=== PATIENT | female | born 1995 | race Caucasian/White ===

== ENCOUNTER 2017-02-14 16:17 | Emergency (ER) | payer OTHER, BC ==
[~2017-02-14] VITALS: Ht 165.1 cm; Wt 115.5 kg
[~2017-02-14 16:17] MED LIST: ALBU18002 INH; ASPI-390 PO; BCPILLS PO; MELA1TAB5 PO
[2017-02-14 16:20] VITALS: TEMP 37.4; Ht 165.1 cm; Wt 115.5 kg
--- NOTE | 2017-02-14 16:57 | DIAGNOSTIC IMAGING REPORT ---
RIGHT ANKLE MIN 3 VIEWS ROUTINE CLINICAL HISTORY: r/o fx right ankle, pain following trauma Right trauma. Pain. COMPARISON: None. DISCUSSION: Possible incomplete cortical fracture of the mid to inferior talus. Medial and lateral malleolus are unremarkable. No evidence of dislocation. There is no evidence for soft tissue swelling. IMPRESSION: Potential incomplete cortical fracture of the mid to inferior talus. CT of the right ankle is suggested for confirmation Electronically signed by: Michael Villanueva M.D. 02/14/2017 4:56 PM Dictated Date/Time: 02/14/2017 4:45 PM
--- NOTE | 2017-02-14 16:59 | DIAGNOSTIC IMAGING REPORT ---
RIGHT FOOT MIN 3 VIEWS ROUTINE CLINICAL HISTORY: R/O fx right foot, pain following trauma Right trauma. Pain. COMPARISON: None. DISCUSSION: The bones and joint spaces appear intact. There is no evidence of fracture, dislocation or bony disease. There is no evidence for soft tissue swelling. IMPRESSION: Negative study. Electronically signed by: Michael Villanueva M.D. 02/14/2017 4:58 PM Dictated Date/Time: 02/14/2017 4:57 PM
[2017-02-14] MEDS ORDERED: ONDANSETRON INJ 2 MG/ML 2 ML VIAL IV STA (17:32)
[2017-02-14] MEDS ORDERED: MoRPHine SULFATE 4 MG/ML 1 ML CARP\\VIAL IV STA (17:32)
[2017-02-14] MEDS ORDERED: DESO1TAB24 PO (17:38)
[2017-02-14] MEDS ORDERED: DOXY100C2 PO (17:38)
[2017-02-14] MEDS ORDERED: EFFSR75 PO (17:38)
[2017-02-14] MEDS ORDERED: FLUT0.15 NAE (17:46)
[2017-02-14] MEDS ORDERED: VNTHFA/IN INH (17:46)
[2017-02-14] MEDS ORDERED: ASPI-390 PO (17:46)
[2017-02-14] MEDS ORDERED: ONDA4TAB46 PO (17:46)
--- NOTE | 2017-02-14 18:39 | DIAGNOSTIC IMAGING REPORT ---
CT OF THE RIGHT ANKLE AND FOOT WITHOUT CONTRAST CLINICAL HISTORY: Right ankle pain following trauma. Possible talar fracture on radiographs. TECHNIQUE: Axial images of the right ankle and foot were obtained without IV contrast. Sagittal and coronal reconstructions were viewed. COMPARISON STUDY: Right ankle and foot radiograph performed earlier today. FINDINGS: An os trigonum is present. The tarsometatarsal joints are intact. No acute fracture is identified on this examination. The finding on prior radiographs was artifactual. There is mild soft tissue swelling of the right ankle and foot. IMPRESSION: No acute fracture or dislocation of the right ankle or foot. The finding on prior radiographs was artifactual was likely due to an os trigonum, an anatomic variant. Electronically signed by: Adelfo Coleman M.D. 02/14/2017 6:37 PM Dictated Date/Time: 02/14/2017 6:30 PM
[2017-02-14 20:05] VITALS: BP 168/106; PULSE 90; O2SAT 98
[2017-02-14] MEDS ORDERED: RIZA10TA18 PO (22:57)
--- NOTE | 2017-02-18 20:44 | EMERGENCY ROOM VISIT NOTE ---
ED Visit Note First contact with patient: 16:54 CHIEF COMPLAINT: Right ankle pain. HISTORY OF PRESENT ILLNESS: Ms. Veronica is a 21-year old female who ambulates into the ED complaining of right ankle pain. She reports approximately 1.5 hours ago she lost her balance and fell down 3-4 steps injuring her right ankle while at work. Since that time she reports that she has had severe pain throughout the ankle. She currently describes her pain as a sharp and throbbing sensation. She rates her discomfort 10/10. Her pain is radiating down the medial ankle and into the foot. She has not identified any alleviating factors related to the pain. Palpation and all ankle movements increase her discomfort. She has not taken her medications for pain prior to arrival at the hospital. Associated with her pain she reports she has a mild tingling sensation through all the toes. She denies hip pain, knee pain, lower leg pain, leg weakness/numbness/tingling. She also denies any previous significant injuries or surgeries to the right ankle or foot. REVIEW OF SYSTEMS: As noted above in History of Present Illness. PAST MEDICAL HISTORY: Bronchitis, pneumonia, migraine headaches and status post tonsillectomy/adenoidectomy. CURRENT MEDICATIONS: Medications Dose Route/Sig Max Daily Dose Days Date Category Zofran (Ondansetron HCl) 4 Mg Tab 4 Mg PO PRN UD PRN 02/14/17 Reported Excedrin Migraine (Ljzqafn-Mqqrzkbitndoi-Qlhbqrgf) 1 Tab Tab 2 Tabs PO PRN UD 02/14/17 Reported Flonase Allergy Relief (Fluticasone Propionate (Nasal)) 50 Mcg/Act Spr 2 Sprays MANNY DAILY PRN 02/14/17 Reported Ventolin Hfa (Albuterol) 200 Puffs/58097 Mcg Aers 2 Puffs INH Q4 02/14/17 Reported Juleber 0.15-30 mg-Mcg (Desogestrel & Ethinyl Estradio) 1 Tab Tab 1 Tab PO DAILY 02/14/17 Reported Effexor Extended Rel (Venlafaxine Hcl) 75 Mg Capcr 75 Mg PO DAILY 02/14/17 Reported Vibramycin (Doxycycline Hyclate) 100 Mg Cap 100 Mg PO BID 02/14/17 Reported Maxalt (Rizatriptan Benzoate) 10 Mg Tab 10 Mg PO UD PRN 8/5/15 Reported ALLERGIES TO MEDICATIONS: Penicillins. SOCIAL HISTORY: Patient is currently employed; she feels safe in her home environment; she denies tobacco and alcohol use. PHYSICAL EXAM: Vital Signs: Date Time Temp Pulse Resp B/P Pulse Ox O2 Delivery O2 Flow Rate FiO2 02/14/17 20:05 90 18 168/106 98 02/14/17 18:28 97 14 130/94 97 Room Air 02/14/17 16:20 37.4 92 16 146/85 97 Room Air General: 21 year old female in mild/moderate distress due to pain, nontoxic- appearing, afebrile and hemodynamically stable. Neurological: Awake, alert, oriented to person place and time. Answering questions appropriately and following commands. Skin: Warm dry and pink. No soft tissue injuries. Right Lower Extremity: No gross dylan deformities. No tenderness in the hip or knee. Tenderness over the medial and lower malleolus and the ligamentous structures anterior and inferior to the malleoli with mild swelling but no bony deformity, bony crepitus or ecchymosis. It was difficult to evaluate ligamentous structures due to patient's pain but I did not perceive any significant laxity throughout the ankle. There was also tenderness over the medial cuneiform tarsal without bony deformity, swelling or ecchymosis. She does have near full range of motion of plantar flexion and dorsi flexion but decreased range of motion in inversion and eversion. She did have full range of motion in flexion and extension of all toes. Throughout the foot the skin is pink and warm with brisk capillary refill. Able to distinguish light sensations through all dermatomes of the foot. ED COURSE: Patient is assessed as noted above. Denied IV lock was initiated and patient received 4 mg of morphine IV and 4 mg of Zofran IV. Right Foot X-Rays: Were read by myself and the radiologist showing no acute fractures or dislocations. Right Ankle X-Rays: Were read by myself and the radiologist showing a possible cortical fracture of the mid to inferior talus. CT was recommended for confirmation. CT Right Ankle/Foot: Was reviewed by myself and read by the radiologist showing no acute fractures or dislocations; previous x-ray findings were artifact. Additionally patient was given ice for pain, swelling and comfort. Patient is placed in a gel splint and is instructed on crutch use. Patient is educated about her condition and instructed on her treatment plan; she verbalizes understanding and agreement with the our plan. CLINICAL IMPRESSION: Right ankle sprain. Status post fall. Work related injury. DISPOSITION: Patient is discharged to home in stable condition prior to departure she was reassessed and subjectively reported she was feeling much better and rated her discomfort 4/10. PLAN: Comfort measures were discussed with the patient. Patient was encouraged to follow-up with Workmen's Compensation in 3-4 days for recheck and return to work instruction and reevaluation. Patient was encouraged return the ED for worsening/uncontrolled pain, uncontrolled swelling, foot/ankle weakness/numbness/tingling or any new/ concerning symptoms.
== END 2017-02-14 20:10 | disposition home or self-care (01) ==
LOC: C.EDB 16:18 → C.EDD 20:10
DX: S93.401A Sprain of unspecified ligament of right ankle, initial encounter (principal); W10.9XXA Fall (on) (from) unspecified stairs and steps, initial encounter; Y99.0 Civilian activity done for income or pay

== ENCOUNTER 2020-04-07 21:17 | Inpatient (IN) ==
--- NOTE | 2020-04-07 22:18 | Obstetrical Progress Note ---
Date of Service April 07, 2020 Subjective 24 yo at 40.2 days SROM @ 1900Hrs 04/07/20 FHR; CAT1 VE; / Sono; VT Ctx ; Irregular Pt does not want any medical augmentation for now. Explained to pt, the purpose of staring augmentation is to prevent infection and its associated consequences Pt and spouse have expressed understanding Results & Data ([facility]) Vital Signs (Past 12 Hours) Vital Signs Temp Pulse Resp BP 04/07/20 21:38 37.0 C 90 18 128/74 04/07/20 21:36 37.0 C 90 18 128/74
[2020-04-07] MEDS ORDERED: OXYTOCIN 30 UNITS/500 ML BAG IV PRN (22:26)
[2020-04-07 22:49] LABS: Hematocrit (blood only) 39.5 % (37-47); Hemoglobin 13.7 g/dL (12.0-16.0); Mean Corpuscular Volume 86.6 fL (80-100); Mean Platelet Volume 11.9 fL (7.4-10.4); Platelet Count 242 K/uL (130-400); RDW Coefficient of Variation 13.7 % (11.5-14.5); Red Blood Count 4.56 M/uL (4.2-5.4); White Blood Count 12.84 K/uL (4.8-10.8)
[2020-04-07 22:52] LABS: Mean Corpuscular Hgb Conc 34.7 g/dL (32-36)
[2020-04-08] MEDS ORDERED: BUTORPHANOL TARTRATE 1 MG/ML VIAL IV PRN (03:30)
[2020-04-08] MEDS ORDERED: BUTORPHANOL TARTRATE 1 MG/ML VIAL ONE (03:37)
[2020-04-08] MEDS: LACTATED RINGER'S 1,000 ML IV PRN ×4 (03:39→21:38)
[2020-04-08] MEDS ORDERED: ePHEDrine sulfate 50 MG/ML AMP ONE (08:03)
[2020-04-08] MEDS ORDERED: BUPIVACAINE 0.25% 30 ML VIAL ONE ×2 (08:03→20:22)
[2020-04-08] MEDS ORDERED: OXYTOCIN 30 UNITS/500 ML BAG IV PRN (08:03)
--- NOTE | 2020-04-08 08:03 | History & Physical Report ---
Date of Service April 08, 2020 Assessment & Plan (1) Spontaneous rupture of amniotic membranes: 24 yo at 40.3 wks with SROM since 1900 yesterday, now with regular ctx and cervical change VSS Afebrile FHR reassuring GBS negative Plan epidural for pain and augment with pitocin if needed Continue to monitor closely History of Present Illness Primary Care Provider: Svitlana Duarte DO Patient is a 24 yo at 40.3 wks admitted last night by Dr Guardado for SROM at 1900 She started to have ctxs around 2300 and got closer and stronger around 3 am this morning'Now she is very painful and desires epidural for pain LOF+ clear, NO VB +FM her has been uncomplicated except class II Obesity GBS negative Denies medical problems, smoking/ alcohol or Drug use, no h/o STD's Allergies Allergy/AdvReac Type Severity Reaction Status Date / Time sulfamethoxazole Allergy Intermediate Rash Verified 04/07/20 22:35 [From Bactrim] trimethoprim [From Bactrim] Allergy Intermediate Rash Verified 04/07/20 22:35 amoxicillin Allergy Mild RASH AN Verified 10/19/19 22:42 cefprozil Allergy Mild Rash Verified 10/19/19 22:42 fluoxetine Allergy Mild Redness of Verified 10/19/19 22:42 Skin Penicillins Allergy Mild RASH AN Verified 10/19/19 22:42 tramadol Allergy Mild Redness of Verified 10/19/19 22:42 Skin Home Medications Home Medications Medication Instructions Recorded Confirmed Type PNV cmb#95-ferrous fumarate-FA 1 tab PO DAILY 10/19/19 04/07/20 History [] Patient History Medical History Bronchitis (Acute) Migraine (Chronic) Surgical History S/P tonsillectomy and adenoidectomy (Chronic) Social History Preferred Language: Danish Communication Ability: Effective Beliefs That Will Affect Care: None marital status: Current Living Situation: Spouse Other Information That Helps Us Care for You: No Feels Safe at Home: Yes Safety Concerns: Feels Safe At This Time Smoking Status: Never smoker Hx Alcohol Use: No Hx Substance Use: No Review of Systems All systems reviewed & are unremarkable except as noted in HPI & below Physical Exam Genitourinary: normal external appearance VE: cervox 43 cm/ 60%/ -1, mid, FSE is applied, FHR 130's Results & Data Vital Signs (Past 12 Hours) Vital Signs Temp Pulse Resp BP 04/08/20 07:13 37.1 C 97 H 20 135/70 04/08/20 06:14 36.7 C 85 18 125/65 04/08/20 03:56 36.6 C 04/08/20 02:00 36.6 C 04/08/20 00:00 36.6 C 04/07/20 21:38 37.0 C 90 18 128/74 04/07/20 21:36 37.0 C 90 18 128/74 Laboratory Results Lab Results 04/07/20 Range/Units 22:41 WBC 12.84 H (4.8-10.8) K/uL RBC 4.56 (4.2-5.4) M/uL Hgb 13.7 (12.0-16.0) g/dL Hct 39.5 (37-47) % MCV 86.6 (80-100) fL MCH 30.0 (25-34) pg MCHC 34.7 (32-36) g/dL RDW Std Deviation 43.0 (36.4-46.3) fL RDW Coeff of Nazia 13.7 (11.5-14.5) % Plt Count 242 (130-400) K/uL MPV 11.9 H (7.4-10.4) fL Monitoring External Monitor 130's, unable to monitor continuously, FS is applied Tocodynamometer Ctxs q 2-3 min
[2020-04-08] MEDS ORDERED: fentaNYL 2MCG/ML ROPIV 1.25MG/ML 100 ML BAG EPI ONE (08:04)
[2020-04-08] MEDS ORDERED: fentaNYL citrate 100 MCG/2 ML VIAL ONE ×2 (08:04→20:21)
[2020-04-08] MEDS ORDERED: NALOXONE HCL 0.4 MG/1 ML VIAL/CARP IV PRN (08:16)
[2020-04-08] MEDS ORDERED: ePHEDrine sulfate 50 MG/ML AMP IV PRN (08:16)
[2020-04-08] MEDS ORDERED: NALOXONE HCL 1 MG in SODIUM CHLORIDE 0.9% 1000ML 1,000 ML IV PRN (08:16)
[2020-04-08] MEDS ORDERED: ONDANSETRON INJ 2 MG/ML 2 ML VIAL IV PRN (08:16)
[2020-04-08] MEDS ORDERED: DiphenhydrAMINE HCL 50 MG/ML VIAL IV PRN (08:16)
--- NOTE | 2020-04-08 08:19 | Anesthesiology Consultation ---
Date of Service April 08, 2020 Assessment & Plan (1) Encounter for pre-operative examination: Chart Review Chart Review: Patient NOT seen in Pre Admission Testing and Acceptable Risk for Labor Epidural Consults Requested none History Height/Weight Height: 5 ft 5 in Weight: 124.284 kg Allergies Allergy/AdvReac Type Severity Reaction Status Date / Time sulfamethoxazole Allergy Intermediate Rash Verified 04/07/20 22:35 [From Bactrim] trimethoprim [From Bactrim] Allergy Intermediate Rash Verified 04/07/20 22:35 amoxicillin Allergy Mild RASH AN Verified 10/19/19 22:42 cefprozil Allergy Mild Rash Verified 10/19/19 22:42 fluoxetine Allergy Mild Redness of Verified 10/19/19 22:42 Skin Penicillins Allergy Mild RASH AN Verified 10/19/19 22:42 tramadol Allergy Mild Redness of Verified 10/19/19 22:42 Skin Medications Home Medications Medication Instructions Recorded Confirmed Last Taken PNV cmb#95-ferrous fumarate-FA 1 tab PO DAILY 10/19/19 04/07/20 04/07/20 [] Active Medications Generic Name Dose Route Start Last Admin Trade Name Freq PRN Reason Stop Dose Admin Lactated Ringer's 1,000 mls @ 125 mls/hr 04/07/20 22:26 04/08/20 07:59 Lr IV 04/09/20 22:25 999 mls/hr .Q8H PRN Infusion L&D Protocol Protocol Past Medical History Medical History Bronchitis (Acute) Migraine (Chronic) Exercise / Class Metabolic Activity II 4-5 Yardwork/Stairs/Walk up hill Past Surgical History Surgical History S/P tonsillectomy and adenoidectomy (Chronic) Past Anesthesia History No Hx of Anesthesia Complications and No Family Hx of Anesthesia Complications History of PONV No Hx of PONV and No Hx of Motion Sickness Social History Smoking Status: Never smoker Do You Dip or Chew Tobacco: No Hx Alcohol Use: No Hx Substance Use: No Physical Exam Vital Signs Last Vital Signs Temp 37.1 C 04/08/20 07:13 Pulse 109 H 04/08/20 08:15 Resp 20 04/08/20 07:13 BP 135/70 04/08/20 07:13 Pulse Ox 96 04/08/20 08:15 Testing Laboratory Results 04/07/20 22:41
--- NOTE | 2020-04-08 13:59 | Obstetrical Progress Note ---
Date of Service April 08, 2020 Assessment & Plan Admission and Anticipated Discharge Date Admission Date: April 07, 2020 Subjective Patient is reevaluated She is comfortable now VSS Afebrile VE: 3/ 80%/ -2 FHR 140's categ I [place] irregular ctxs Plan to start pitocin and AB for prolonged ROM, multiple allergies Results & Data ([facility]) Vital Signs (Past 12 Hours) Vital Signs Temp Pulse Resp BP Pulse Ox 04/08/20 13:55 107 H 99 04/08/20 13:50 109 H 97 04/08/20 13:48 102 H 135/74 04/08/20 13:45 94 H 97 04/08/20 13:40 93 H 97 04/08/20 13:35 96 H 96 04/08/20 13:31 108 H 111/56 L 04/08/20 13:30 91 H 96 04/08/20 13:25 93 H 96 04/08/20 13:20 84 96 04/08/20 13:16 102 H 120/62 04/08/20 13:15 98 H 96 04/08/20 13:10 88 97 04/08/20 13:05 94 H 97 04/08/20 13:02 93 H 116/67 04/08/20 13:00 96 H 20 96 04/08/20 12:55 103 H 98 04/08/20 12:50 92 H 96 04/08/20 12:47 100 H 118/65 04/08/20 12:45 91 H 97 04/08/20 12:40 86 97 04/08/20 12:35 82 97 04/08/20 12:32 85 116/65 04/08/20 12:30 37.1 C 91 H 20 96 04/08/20 12:27 100 H 120/76 04/08/20 12:25 114 H 98 04/08/20 12:20 88 97 04/08/20 12:16 84 96/49 L 04/08/20 12:15 83 96 04/08/20 12:10 81 96 04/08/20 12:05 80 95 04/08/20 12:03 89 96/52 L 04/08/20 12:00 85 18 96 04/08/20 11:55 106 H 97 04/08/20 11:50 86 96 04/08/20 11:47 86 119/57 L 04/08/20 11:45 86 97 04/08/20 11:40 99 H 96 04/08/20 11:35 99 H 97 04/08/20 11:31 84 123/57 L 04/08/20 11:30 85 20 97 04/08/20 11:25 84 97 04/08/20 11:20 85 97 04/08/20 11:17 83 117/56 L 04/08/20 11:15 83 96 04/08/20 11:10 82 96 04/08/20 11:05 83 96 04/08/20 11:02 82 109/56 L 04/08/20 11:00 82 20 95 04/08/20 10:55 95 H 96 04/08/20 10:50 81 96 04/08/20 10:47 88 124/63 04/08/20 10:45 90 97 04/08/20 10:40 99 H 97 04/08/20 10:35 88 95 04/08/20 10:33 86 106/52 L 04/08/20 10:30 37.1 C 86 20 96 04/08/20 10:25 87 96 04/08/20 10:20 90 96 04/08/20 10:17 92 H 104/56 L 04/08/20 10:15 91 H 95 04/08/20 10:10 93 H 95 04/08/20 10:05 89 96 04/08/20 10:04 92 H 111/52 L 04/08/20 10:00 93 H 20 95 04/08/20 09:55 101 H 96 04/08/20 09:50 98 H 97 04/08/20 09:47 108 H 114/67 04/08/20 09:45 97 H 97 04/08/20 09:40 107 H 98 04/08/20 09:35 100 H 97 04/08/20 09:31 94 H 108/56 L 04/08/20 09:30 104 H 20 97 04/08/20 09:25 90 96 04/08/20 09:20 95 H 96 04/08/20 09:16 93 H 103/53 L 04/08/20 09:15 94 H 96 04/08/20 09:10 109 H 97 04/08/20 09:05 91 H 20 94 04/08/20 09:01 110 H 107/57 L 04/08/20 09:00 100 H 105/53 L 96 04/08/20 08:57 106 H 106/58 L 04/08/20 08:56 37.1 C 20 04/08/20 08:55 101 H 115/58 L 95 04/08/20 08:53 99 H 107/52 L 04/08/20 08:51 105 H 117/60 04/08/20 08:50 106 H 95 04/08/20 08:49 101 H 114/59 L 04/08/20 08:48 98 H 123/69 04/08/20 08:45 107 H 118/61 96 04/08/20 08:43 88 20 119/63 04/08/20 08:42 97 H 135/85 04/08/20 08:40 102 H 131/74 98 04/08/20 08:37 93 H 129/60 04/08/20 08:35 103 H 128/60 98 04/08/20 08:33 100 H 137/86 04/08/20 08:30 103 H 94 04/08/20 08:25 104 H 137/74 99 04/08/20 08:20 108 H 99 04/08/20 08:17 84 86 L 04/08/20 08:15 109 H 96 04/08/20 08:11 99 H 93 04/08/20 08:10 97 H 94 04/08/20 07:13 37.1 C 97 H 20 135/70 04/08/20 06:14 36.7 C 85 18 125/65 04/08/20 03:56 36.6 C 04/08/20 02:00 36.6 C
[2020-04-08] MEDS: CLINDAMYCIN 900 MG in DEXTROSE 5% 50 ML IV SCH ×2 (14:42→22:03)
--- NOTE | 2020-04-08 15:20 | Post Operative Brief Note ---
Immediate Post Op Note v1 Date of Surgery April 08, 2020 I identified the patient and participated in the time-out.: Yes Procedure Primary C section Surgeon Sadi Uriostegui MD Microbiological Laboratory Technician Sofya RN Estimated Blood Loss 700 Findings Consistent with Post-Op Diagnosis Drains Will Catheter Anesthesia Type Labor Epidural Complications none Disposition Accompanied Patient To Recovery: Yes Disposition: L&D
[2020-04-08] MEDS ORDERED: AZITHROMYCIN 500 MG in DEXTROSE 5% 250 ML IV ONE (16:00)
--- NOTE | 2020-04-08 16:02 | Obstetrical Progress Note ---
Date of Service April 08, 2020 Assessment & Plan Admission and Anticipated Discharge Date Admission Date: April 07, 2020 Subjective Patient is reevaluated to place IUPC, unable to monitor ctxs with external monitor She is comfortable VSS Afebrile VE: 3-4/ 90%/ -1, central, IUPC is placed FHR 140's categ I [place] irregular ctxs, pitocin is at 6 miu/min Continue to monitor closely Results & Data ([facility]) Vital Signs (Past 12 Hours) Vital Signs Temp Pulse Resp BP Pulse Ox 04/08/20 15:55 84 96 04/08/20 15:50 84 96 04/08/20 15:46 90 110/58 L 04/08/20 15:45 88 95 04/08/20 15:40 89 96 04/08/20 15:35 90 96 04/08/20 15:31 90 109/55 L 04/08/20 15:30 89 20 96 04/08/20 15:25 86 96 04/08/20 15:20 95 H 95 04/08/20 15:17 93 H 119/64 04/08/20 15:15 111 H 97 04/08/20 15:10 93 H 96 04/08/20 15:05 108 H 96 04/08/20 15:03 99 H 118/56 L 04/08/20 15:00 100 H 20 95 04/08/20 14:55 105 H 97 04/08/20 14:50 110 H 97 04/08/20 14:48 99 H 120/57 L 04/08/20 14:45 100 H 97 04/08/20 14:40 118 H 97 04/08/20 14:35 104 H 97 04/08/20 14:31 102 H 124/57 L 04/08/20 14:30 105 H 20 98 04/08/20 14:25 114 H 97 04/08/20 14:20 99 H 97 04/08/20 14:18 98 H 131/59 L 04/08/20 14:15 104 H 97 04/08/20 14:10 103 H 98 04/08/20 14:05 98 H 98 04/08/20 14:03 94 H 131/61 04/08/20 14:00 36.9 C 105 H 20 98 04/08/20 13:55 107 H 99 04/08/20 13:50 109 H 97 04/08/20 13:48 102 H 135/74 04/08/20 13:45 94 H 97 04/08/20 13:40 93 H 97 04/08/20 13:35 96 H 96 04/08/20 13:31 108 H 111/56 L 04/08/20 13:30 91 H 96 04/08/20 13:25 93 H 96 04/08/20 13:20 84 96 04/08/20 13:16 102 H 120/62 04/08/20 13:15 98 H 96 04/08/20 13:10 88 97 04/08/20 13:05 94 H 97 04/08/20 13:02 93 H 116/67 04/08/20 13:00 96 H 20 96 04/08/20 12:55 103 H 98 04/08/20 12:50 92 H 96 04/08/20 12:47 100 H 118/65 04/08/20 12:45 91 H 97 04/08/20 12:40 86 97 04/08/20 12:35 82 97 04/08/20 12:32 85 116/65 04/08/20 12:30 37.1 C 91 H 20 96 04/08/20 12:27 100 H 120/76 04/08/20 12:25 114 H 98 04/08/20 12:20 88 97 04/08/20 12:16 84 96/49 L 04/08/20 12:15 83 96 04/08/20 12:10 81 96 04/08/20 12:05 80 95 04/08/20 12:03 89 96/52 L 04/08/20 12:00 85 18 96 04/08/20 11:55 106 H 97 04/08/20 11:50 86 96 04/08/20 11:47 86 119/57 L 04/08/20 11:45 86 97 04/08/20 11:40 99 H 96 04/08/20 11:35 99 H 97 04/08/20 11:31 84 123/57 L 04/08/20 11:30 85 20 97 04/08/20 11:25 84 97 04/08/20 11:20 85 97 04/08/20 11:17 83 117/56 L 04/08/20 11:15 83 96 04/08/20 11:10 82 96 04/08/20 11:05 83 96 04/08/20 11:02 82 109/56 L 04/08/20 11:00 82 20 95 04/08/20 10:55 95 H 96 04/08/20 10:50 81 96 04/08/20 10:47 88 124/63 04/08/20 10:45 90 97 04/08/20 10:40 99 H 97 04/08/20 10:35 88 95 04/08/20 10:33 86 106/52 L 04/08/20 10:30 37.1 C 86 20 96 04/08/20 10:25 87 96 04/08/20 10:20 90 96 04/08/20 10:17 92 H 104/56 L 04/08/20 10:15 91 H 95 04/08/20 10:10 93 H 95 04/08/20 10:05 89 96 04/08/20 10:04 92 H 111/52 L 04/08/20 10:00 93 H 20 95 04/08/20 09:55 101 H 96 04/08/20 09:50 98 H 97 04/08/20 09:47 108 H 114/67 04/08/20 09:45 97 H 97 04/08/20 09:40 107 H 98 04/08/20 09:35 100 H 97 04/08/20 09:31 94 H 108/56 L 04/08/20 09:30 104 H 20 97 04/08/20 09:25 90 96 04/08/20 09:20 95 H 96 04/08/20 09:16 93 H 103/53 L 04/08/20 09:15 94 H 96 04/08/20 09:10 109 H 97 04/08/20 09:05 91 H 20 94 04/08/20 09:01 110 H 107/57 L 04/08/20 09:00 100 H 105/53 L 96 04/08/20 08:57 106 H 106/58 L 04/08/20 08:56 37.1 C 20 04/08/20 08:55 101 H 115/58 L 95 04/08/20 08:53 99 H 107/52 L 04/08/20 08:51 105 H 117/60 04/08/20 08:50 106 H 95 04/08/20 08:49 101 H 114/59 L 04/08/20 08:48 98 H 123/69 04/08/20 08:45 107 H 118/61 96 04/08/20 08:43 88 20 119/63 04/08/20 08:42 97 H 135/85 04/08/20 08:40 102 H 131/74 98 04/08/20 08:37 93 H 129/60 04/08/20 08:35 103 H 128/60 98 04/08/20 08:33 100 H 137/86 04/08/20 08:30 103 H 94 04/08/20 08:25 104 H 137/74 99 04/08/20 08:20 108 H 99 04/08/20 08:17 84 86 L 04/08/20 08:15 109 H 96 04/08/20 08:11 99 H 93 04/08/20 08:10 97 H 94 04/08/20 07:13 37.1 C 97 H 20 135/70 04/08/20 06:14 36.7 C 85 18 125/65
[2020-04-08] MEDS: fentaNYL 2MCG/ML ROPIV 1.25MG/ML 100 ML BAG EPI PRN (17:44)
--- NOTE | 2020-04-08 20:37 | Communication Note ---
Date of Service: April 08, 2020 Pt c/o pain 8/10. Pt. epidural bolused at 2030 w/ 12 ml 0.17% bupivacaine + 100 mcgs fentanyl.Neg. aspiration incrementally w/ injection x 5 minutes.Vital signs are stable.
--- NOTE | 2020-04-08 21:54 | Obstetrical Progress Note ---
Date of Service April 08, 2020 Assessment & Plan Admission and Anticipated Discharge Date Admission Date: April 07, 2020 Subjective Patient is reevaluated She had pain and pressure and epidural was bolused She is comfortable VE: 5/ 90%/0, central FHR 130's, good variability and acccels, had mild late decels after ctxs q 1-2 min, pitocin was stopped and FHR recovered Ezel: ctx q 1-3 min, had been over 200 MVU/10 min Plan to restart pitocin and continue to monitor closely Results & Data ([facility]) Vital Signs (Past 12 Hours) Vital Signs Temp Pulse Resp BP Pulse Ox 04/08/20 21:50 93 H 122/62 98 04/08/20 21:45 119 H 98 04/08/20 21:40 103 H 99 04/08/20 21:35 98 H 116/57 L 99 04/08/20 21:30 95 H 99 04/08/20 21:25 93 H 98 04/08/20 21:20 96 H 111/56 L 98 04/08/20 21:15 106 H 98 04/08/20 21:10 93 H 97 04/08/20 21:05 97 H 113/56 L 98 04/08/20 21:00 90 16 97 04/08/20 20:55 37.0 C 95 H 99 04/08/20 20:50 88 123/62 97 04/08/20 20:45 90 97 04/08/20 20:40 91 H 98 04/08/20 20:35 96 H 98 04/08/20 20:34 95 H 130/69 04/08/20 20:32 93 H 131/74 04/08/20 20:30 95 H 18 98 04/08/20 20:25 96 H 99 04/08/20 20:20 99 H 97 04/08/20 20:17 93 H 130/69 04/08/20 20:15 95 H 99 04/08/20 20:10 102 H 100 04/08/20 20:05 101 H 100 04/08/20 20:02 96 H 120/67 04/08/20 20:00 99 H 18 100 04/08/20 19:55 93 H 99 04/08/20 19:53 95 H 117/57 L 04/08/20 19:50 101 H 98 04/08/20 19:45 115 H 98 04/08/20 19:40 100 H 99 04/08/20 19:35 97 H 99 04/08/20 19:33 95 H 119/68 04/08/20 19:30 103 H 18 99 04/08/20 19:25 92 H 98 04/08/20 19:20 95 H 99 04/08/20 19:17 97 H 117/58 L 04/08/20 19:15 95 H 99 04/08/20 19:10 101 H 99 04/08/20 19:05 99 H 100 04/08/20 19:02 101 H 125/58 L 04/08/20 19:00 36.9 C 103 H 20 98 04/08/20 18:55 94 H 99 04/08/20 18:50 90 98 04/08/20 18:47 93 H 114/55 L 04/08/20 18:45 93 H 99 04/08/20 18:40 94 H 100 04/08/20 18:35 92 H 99 04/08/20 18:31 90 126/62 04/08/20 18:30 91 H 20 99 04/08/20 18:25 92 H 99 04/08/20 18:20 91 H 100 04/08/20 18:17 90 121/64 04/08/20 18:15 94 H 99 04/08/20 18:10 91 H 99 04/08/20 18:05 93 H 99 04/08/20 18:02 92 H 118/65 04/08/20 18:00 36.9 C 91 H 20 98 04/08/20 17:55 95 H 98 04/08/20 17:50 97 H 121/64 99 04/08/20 17:45 94 H 98 04/08/20 17:40 102 H 100 04/08/20 17:35 90 98 04/08/20 17:33 90 108/58 L 04/08/20 17:30 93 H 20 98 04/08/20 17:25 92 H 98 04/08/20 17:20 109 H 99 04/08/20 17:17 96 H 115/63 04/08/20 17:15 98 H 98 04/08/20 17:10 94 H 98 04/08/20 17:05 94 H 97 04/08/20 17:03 98 H 114/57 L 04/08/20 17:00 97 H 20 97 04/08/20 16:55 96 H 98 04/08/20 16:50 95 H 97 04/08/20 16:47 96 H 111/56 L 04/08/20 16:45 90 97 04/08/20 16:40 96 H 98 04/08/20 16:35 96 H 97 04/08/20 16:33 94 H 113/56 L 04/08/20 16:30 92 H 20 97 04/08/20 16:25 92 H 97 04/08/20 16:20 92 H 97 04/08/20 16:18 93 H 115/55 L 04/08/20 16:15 91 H 97 04/08/20 16:10 97 H 97 04/08/20 16:05 121 H 97 04/08/20 16:03 94 H 112/55 L 04/08/20 16:00 37.2 C 104 H 20 98 04/08/20 15:55 84 96 04/08/20 15:50 84 96 04/08/20 15:46 90 110/58 L 04/08/20 15:45 88 95 04/08/20 15:40 89 96 04/08/20 15:35 90 96 04/08/20 15:31 90 109/55 L 04/08/20 15:30 89 20 96 04/08/20 15:25 86 96 04/08/20 15:20 95 H 95 04/08/20 15:17 93 H 119/64 04/08/20 15:15 111 H 97 04/08/20 15:10 93 H 96 04/08/20 15:05 108 H 96 04/08/20 15:03 99 H 118/56 L 04/08/20 15:00 100 H 20 95 04/08/20 14:55 105 H 97 04/08/20 14:50 110 H 97 04/08/20 14:48 99 H 120/57 L 04/08/20 14:45 100 H 97 04/08/20 14:40 118 H 97 04/08/20 14:35 104 H 97 04/08/20 14:31 102 H 124/57 L 04/08/20 14:30 105 H 20 98 04/08/20 14:25 114 H 97 04/08/20 14:20 99 H 97 04/08/20 14:18 98 H 131/59 L 04/08/20 14:15 104 H 97 04/08/20 14:10 103 H 98 04/08/20 14:05 98 H 98 04/08/20 14:03 94 H 131/61 04/08/20 14:00 36.9 C 105 H 20 98 04/08/20 13:55 107 H 99 04/08/20 13:50 109 H 97 04/08/20 13:48 102 H 135/74 04/08/20 13:45 94 H 97 04/08/20 13:40 93 H 97 04/08/20 13:35 96 H 96 04/08/20 13:31 108 H 111/56 L 04/08/20 13:30 91 H 96 04/08/20 13:25 93 H 96 04/08/20 13:20 84 96 04/08/20 13:16 102 H 120/62 04/08/20 13:15 98 H 96 04/08/20 13:10 88 97 04/08/20 13:05 94 H 97 04/08/20 13:02 93 H 116/67 04/08/20 13:00 96 H 20 96 04/08/20 12:55 103 H 98 04/08/20 12:50 92 H 96 04/08/20 12:47 100 H 118/65 04/08/20 12:45 91 H 97 04/08/20 12:40 86 97 04/08/20 12:35 82 97 04/08/20 12:32 85 116/65 04/08/20 12:30 37.1 C 91 H 20 96 04/08/20 12:27 100 H 120/76 04/08/20 12:25 114 H 98 04/08/20 12:20 88 97 04/08/20 12:16 84 96/49 L 04/08/20 12:15 83 96 04/08/20 12:10 81 96 04/08/20 12:05 80 95 04/08/20 12:03 89 96/52 L 04/08/20 12:00 85 18 96 04/08/20 11:55 106 H 97 04/08/20 11:50 86 96 04/08/20 11:47 86 119/57 L 04/08/20 11:45 86 97 04/08/20 11:40 99 H 96 04/08/20 11:35 99 H 97 04/08/20 11:31 84 123/57 L 04/08/20 11:30 85 20 97 04/08/20 11:25 84 97 04/08/20 11:20 85 97 04/08/20 11:17 83 117/56 L 04/08/20 11:15 83 96 04/08/20 11:10 82 96 04/08/20 11:05 83 96 04/08/20 11:02 82 109/56 L 04/08/20 11:00 82 20 95 04/08/20 10:55 95 H 96 04/08/20 10:50 81 96 04/08/20 10:47 88 124/63 04/08/20 10:45 90 97 04/08/20 10:40 99 H 97 04/08/20 10:35 88 95 04/08/20 10:33 86 106/52 L 04/08/20 10:30 37.1 C 86 20 96 04/08/20 10:25 87 96 04/08/20 10:20 90 96 04/08/20 10:17 92 H 104/56 L 04/08/20 10:15 91 H 95 04/08/20 10:10 93 H 95 04/08/20 10:05 89 96 04/08/20 10:04 92 H 111/52 L 04/08/20 10:00 93 H 20 95 04/08/20 09:55 101 H 96
[2020-04-09] MEDS ORDERED: fentaNYL citrate 100 MCG/2 ML VIAL ONE ×2 (00:54→04:11)
[2020-04-09] MEDS ORDERED: BUPIVACAINE 0.25% 30 ML VIAL ONE ×2 (00:54→04:12)
--- NOTE | 2020-04-09 01:12 | Obstetrical Progress Note ---
Date of Service April 09, 2020 Assessment & Plan Admission and Anticipated Discharge Date Admission Date: April 07, 2020 Subjective Patient is reevaluated after FHR decel after too often ctxs and quick recovery to baseline with good variability and accels VE; 6/ 90%/ 0, coned head, anterior fontanelle at 1 o'clcok position, OP Will decrease Pitocin, patient to her Left lateral side and continue to monitor Results & Data ([facility]) Vital Signs (Past 12 Hours) Vital Signs Temp Pulse Resp BP Pulse Ox 04/09/20 01:07 90 128/65 04/09/20 01:05 101 H 99 04/09/20 01:00 113 H 99 04/09/20 00:55 36.9 C 98 H 97 04/09/20 00:51 102 H 135/72 04/09/20 00:50 108 H 99 04/09/20 00:45 130 H 99 04/09/20 00:40 99 H 97 04/09/20 00:35 105 H 139/78 97 04/09/20 00:30 91 H 96 04/09/20 00:25 93 H 96 04/09/20 00:20 105 H 16 112/70 97 04/09/20 00:15 93 H 96 04/09/20 00:10 92 H 97 04/09/20 00:07 93 H 138/76 04/09/20 00:05 95 H 97 04/09/20 00:00 93 H 96 04/08/20 23:55 91 H 97 04/08/20 23:50 88 16 112/56 L 97 04/08/20 23:45 90 97 04/08/20 23:40 92 H 97 04/08/20 23:37 92 H 125/63 04/08/20 23:35 109 H 96 04/08/20 23:30 95 H 97 04/08/20 23:25 94 H 97 04/08/20 23:21 93 H 112/57 L 04/08/20 23:20 92 H 16 96 04/08/20 23:15 95 H 96 04/08/20 23:10 94 H 97 04/08/20 23:06 96 H 116/57 L 04/08/20 23:05 97 H 97 04/08/20 23:00 37.4 C 108 H 98 05/22/20 22:55 94 H 96 05/22/20 22:51 97 H 141/80 H 05/22/20 22:50 99 H 20 99 05/22/20 22:45 115 H 100 05/22/20 22:40 110 H 100 05/22/20 22:36 104 H 101/56 L 05/22/20 22:35 107 H 99 05/22/20 22:30 99 H 98 05/22/20 22:25 91 H 98 05/22/20 22:20 92 H 16 118/61 100 05/22/20 22:15 95 H 99 05/22/20 22:10 96 H 99 05/22/20 22:06 93 H 113/62 05/22/20 22:05 94 H 99 05/22/20 22:00 93 H 99 05/22/20 21:55 92 H 98 05/22/20 21:50 93 H 18 122/62 98 05/22/20 21:45 119 H 98 05/22/20 21:40 103 H 99 05/22/20 21:35 98 H 116/57 L 99 05/22/20 21:30 95 H 16 99 05/22/20 21:25 93 H 98 05/22/20 21:20 96 H 111/56 L 98 05/22/20 21:15 106 H 98 05/22/20 21:10 93 H 97 05/22/20 21:05 97 H 113/56 L 98 05/22/20 21:00 90 16 97 05/22/20 20:55 37.0 C 95 H 99 05/22/20 20:50 88 123/62 97 05/22/20 20:45 90 97 05/22/20 20:40 91 H 98 05/22/20 20:35 96 H 98 05/22/20 20:34 95 H 130/69 05/22/20 20:32 93 H 131/74 05/22/20 20:30 95 H 18 98 05/22/20 20:25 96 H 99 05/22/20 20:20 99 H 97 05/22/20 20:17 93 H 130/69 05/22/20 20:15 95 H 99 05/22/20 20:10 102 H 100 05/22/20 20:05 101 H 100 05/22/20 20:02 96 H 120/67 05/22/20 20:00 99 H 18 100 04/08/20 19:55 93 H 99 04/08/20 19:53 95 H 117/57 L 04/08/20 19:50 101 H 98 04/08/20 19:45 115 H 98 04/08/20 19:40 100 H 99 04/08/20 19:35 97 H 99 04/08/20 19:33 95 H 119/68 04/08/20 19:30 103 H 18 99 04/08/20 19:25 92 H 98 04/08/20 19:20 95 H 99 04/08/20 19:17 97 H 117/58 L 04/08/20 19:15 95 H 99 04/08/20 19:10 101 H 99 04/08/20 19:05 99 H 100 04/08/20 19:02 101 H 125/58 L 04/08/20 19:00 36.9 C 103 H 20 98 04/08/20 18:55 94 H 99 04/08/20 18:50 90 98 04/08/20 18:47 93 H 114/55 L 04/08/20 18:45 93 H 99 04/08/20 18:40 94 H 100 04/08/20 18:35 92 H 99 04/08/20 18:31 90 126/62 04/08/20 18:30 91 H 20 99 04/08/20 18:25 92 H 99 04/08/20 18:20 91 H 100 04/08/20 18:17 90 121/64 04/08/20 18:15 94 H 99 04/08/20 18:10 91 H 99 04/08/20 18:05 93 H 99 04/08/20 18:02 92 H 118/65 04/08/20 18:00 36.9 C 91 H 20 98 04/08/20 17:55 95 H 98 04/08/20 17:50 97 H 121/64 99 04/08/20 17:45 94 H 98 04/08/20 17:40 102 H 100 04/08/20 17:35 90 98 04/08/20 17:33 90 108/58 L 04/08/20 17:30 93 H 20 98 04/08/20 17:25 92 H 98 04/08/20 17:20 109 H 99 04/08/20 17:17 96 H 115/63 04/08/20 17:15 98 H 98 04/08/20 17:10 94 H 98 04/08/20 17:05 94 H 97 04/08/20 17:03 98 H 114/57 L 04/08/20 17:00 97 H 20 97 04/08/20 16:55 96 H 98 04/08/20 16:50 95 H 97 04/08/20 16:47 96 H 111/56 L 04/08/20 16:45 90 97 04/08/20 16:40 96 H 98 04/08/20 16:35 96 H 97 04/08/20 16:33 94 H 113/56 L 04/08/20 16:30 92 H 20 97 04/08/20 16:25 92 H 97 04/08/20 16:20 92 H 97 04/08/20 16:18 93 H 115/55 L 04/08/20 16:15 91 H 97 04/08/20 16:10 97 H 97 04/08/20 16:05 121 H 97 04/08/20 16:03 94 H 112/55 L 04/08/20 16:00 37.2 C 104 H 20 98 04/08/20 15:55 84 96 04/08/20 15:50 84 96 04/08/20 15:46 90 110/58 L 04/08/20 15:45 88 95 04/08/20 15:40 89 96 04/08/20 15:35 90 96 04/08/20 15:31 90 109/55 L 04/08/20 15:30 89 20 96 04/08/20 15:25 86 96 04/08/20 15:20 95 H 95 04/08/20 15:17 93 H 119/64 04/08/20 15:15 111 H 97 04/08/20 15:10 93 H 96 04/08/20 15:05 108 H 96 04/08/20 15:03 99 H 118/56 L 04/08/20 15:00 100 H 20 95 04/08/20 14:55 105 H 97 04/08/20 14:50 110 H 97 04/08/20 14:48 99 H 120/57 L 04/08/20 14:45 100 H 97 04/08/20 14:40 118 H 97 04/08/20 14:35 104 H 97 04/08/20 14:31 102 H 124/57 L 04/08/20 14:30 105 H 20 98 04/08/20 14:25 114 H 97 04/08/20 14:20 99 H 97 04/08/20 14:18 98 H 131/59 L 04/08/20 14:15 104 H 97 04/08/20 14:10 103 H 98 04/08/20 14:05 98 H 98 04/08/20 14:03 94 H 131/61 04/08/20 14:00 36.9 C 105 H 20 98 04/08/20 13:55 107 H 99 04/08/20 13:50 109 H 97 04/08/20 13:48 102 H 135/74 04/08/20 13:45 94 H 97 04/08/20 13:40 93 H 97 04/08/20 13:35 96 H 96 04/08/20 13:31 108 H 111/56 L 04/08/20 13:30 91 H 96 04/08/20 13:25 93 H 96 04/08/20 13:20 84 96 04/08/20 13:16 102 H 120/62 04/08/20 13:15 98 H 96
[2020-04-09] MEDS: fentaNYL 2MCG/ML ROPIV 1.25MG/ML 100 ML BAG EPI PRN (02:16)
--- NOTE | 2020-04-09 03:35 | Obstetrical Progress Note ---
Date of Service April 09, 2020 Assessment & Plan Admission and Anticipated Discharge Date Admission Date: April 07, 2020 Subjective Patient is reevaluated She feels well no complaints VSS Afebrile No fever/ chills/ nor pain VE; 7/ 100% ( paper thin) head at +1, much lower, coned, anterior fontanelle at 2 o'clock, still O but more on left FHR 130's, good accels and variability, occasional mild decels some early some late with quick recovery Discussed slow but + progress with each exam Discussed OP position and it may cause longer labor and second stage Discussed continue with pitocin augmentation vs Csection She really wants to avoid Csection and reserve as last resort Will continue to monitor closely Results & Data ([facility]) Vital Signs (Past 12 Hours) Vital Signs Temp Pulse Resp BP Pulse Ox 04/09/20 03:25 130 H 95 04/09/20 03:20 118 H 129/70 97 04/09/20 03:15 97 H 94 04/09/20 03:10 112 H 97 04/09/20 03:05 97 H 134/70 95 04/09/20 03:03 37.0 C 04/09/20 03:00 112 H 96 04/09/20 02:55 92 H 94 04/09/20 02:51 96 H 121/57 L 04/09/20 02:50 93 H 94 04/09/20 02:45 94 H 94 04/09/20 02:40 91 H 95 04/09/20 02:36 91 H 121/59 L 04/09/20 02:35 93 H 95 04/09/20 02:30 95 H 94 04/09/20 02:25 93 H 94 04/09/20 02:21 96 H 115/54 L 04/09/20 02:20 98 H 16 94 04/09/20 02:15 106 H 95 04/09/20 02:10 111 H 96 04/09/20 02:06 93 H 105/50 L 04/09/20 02:05 94 H 95 04/09/20 02:00 97 H 95 04/09/20 01:55 95 H 94 04/09/20 01:50 91 H 16 100/55 L 94 04/09/20 01:45 92 H 95 04/09/20 01:40 92 H 95 04/09/20 01:35 101 H 120/60 97 04/09/20 01:30 89 95 04/09/20 01:25 119 H 97 04/09/20 01:20 93 H 16 132/61 96 04/09/20 01:15 91 H 96 04/09/20 01:10 95 H 98 04/09/20 01:07 90 128/65 04/09/20 01:05 101 H 99 04/09/20 01:00 113 H 99 04/09/20 00:55 36.9 C 98 H 97 04/09/20 00:51 102 H 135/72 04/09/20 00:50 108 H 18 99 04/09/20 00:45 130 H 99 04/09/20 00:40 99 H 97 04/09/20 00:35 105 H 139/78 97 04/09/20 00:30 91 H 96 04/09/20 00:25 93 H 96 04/09/20 00:20 105 H 16 112/70 97 04/09/20 00:15 93 H 96 04/09/20 00:10 92 H 97 04/09/20 00:07 93 H 138/76 04/09/20 00:05 95 H 97 04/09/20 00:00 93 H 96 04/08/20 23:55 91 H 97 04/08/20 23:50 88 16 112/56 L 97 04/08/20 23:45 90 97 04/08/20 23:40 92 H 97 04/08/20 23:37 92 H 125/63 04/08/20 23:35 109 H 96 04/08/20 23:30 95 H 97 04/08/20 23:25 94 H 97 04/08/20 23:21 93 H 112/57 L 04/08/20 23:20 92 H 16 96 04/08/20 23:15 95 H 96 04/08/20 23:10 94 H 97 04/08/20 23:06 96 H 116/57 L 04/08/20 23:05 97 H 97 04/08/20 23:00 37.4 C 108 H 98 04/08/20 22:55 94 H 96 04/08/20 22:51 97 H 141/80 H 04/08/20 22:50 99 H 20 99 05/22/20 22:45 115 H 100 05/22/20 22:40 110 H 100 05/22/20 22:36 104 H 101/56 L 05/22/20 22:35 107 H 99 05/22/20 22:30 99 H 98 05/22/20 22:25 91 H 98 05/22/20 22:20 92 H 16 118/61 100 05/22/20 22:15 95 H 99 05/22/20 22:10 96 H 99 05/22/20 22:06 93 H 113/62 05/22/20 22:05 94 H 99 05/22/20 22:00 93 H 99 05/22/20 21:55 92 H 98 05/22/20 21:50 93 H 18 122/62 98 05/22/20 21:45 119 H 98 05/22/20 21:40 103 H 99 05/22/20 21:35 98 H 116/57 L 99 05/22/20 21:30 95 H 16 99 05/22/20 21:25 93 H 98 05/22/20 21:20 96 H 111/56 L 98 05/22/20 21:15 106 H 98 05/22/20 21:10 93 H 97 05/22/20 21:05 97 H 113/56 L 98 05/22/20 21:00 90 16 97 05/22/20 20:55 37.0 C 95 H 99 05/22/20 20:50 88 123/62 97 05/22/20 20:45 90 97 05/22/20 20:40 91 H 98 05/22/20 20:35 96 H 98 05/22/20 20:34 95 H 130/69 05/22/20 20:32 93 H 131/74 05/22/20 20:30 95 H 18 98 05/22/20 20:25 96 H 99 05/22/20 20:20 99 H 97 05/22/20 20:17 93 H 130/69 05/22/20 20:15 95 H 99 05/22/20 20:10 102 H 100 05/22/20 20:05 101 H 100 05/22/20 20:02 96 H 120/67 05/22/20 20:00 99 H 18 100 05/22/20 19:55 93 H 99 05/22/20 19:53 95 H 117/57 L 0522/20 19:50 101 H 98 04/08/20 19:45 115 H 98 04/08/20 19:40 100 H 99 04/08/20 19:35 97 H 99 04/08/20 19:33 95 H 119/68 04/08/20 19:30 103 H 18 99 04/08/20 19:25 92 H 98 04/08/20 19:20 95 H 99 04/08/20 19:17 97 H 117/58 L 04/08/20 19:15 95 H 99 04/08/20 19:10 101 H 99 04/08/20 19:05 99 H 100 04/08/20 19:02 101 H 125/58 L 04/08/20 19:00 36.9 C 103 H 20 98 04/08/20 18:55 94 H 99 04/08/20 18:50 90 98 04/08/20 18:47 93 H 114/55 L 04/08/20 18:45 93 H 99 04/08/20 18:40 94 H 100 04/08/20 18:35 92 H 99 04/08/20 18:31 90 126/62 04/08/20 18:30 91 H 20 99 04/08/20 18:25 92 H 99 04/08/20 18:20 91 H 100 04/08/20 18:17 90 121/64 04/08/20 18:15 94 H 99 04/08/20 18:10 91 H 99 04/08/20 18:05 93 H 99 04/08/20 18:02 92 H 118/65 04/08/20 18:00 36.9 C 91 H 20 98 04/08/20 17:55 95 H 98 04/08/20 17:50 97 H 121/64 99 04/08/20 17:45 94 H 98 04/08/20 17:40 102 H 100 04/08/20 17:35 90 98 04/08/20 17:33 90 108/58 L 04/08/20 17:30 93 H 20 98 04/08/20 17:25 92 H 98 04/08/20 17:20 109 H 99 04/08/20 17:17 96 H 115/63 04/08/20 17:15 98 H 98 04/08/20 17:10 94 H 98 04/08/20 17:05 94 H 97 05/22/20 17:03 98 H 114/57 L 04/08/20 17:00 97 H 20 97 04/08/20 16:55 96 H 98 04/08/20 16:50 95 H 97 04/08/20 16:47 96 H 111/56 L 04/08/20 16:45 90 97 04/08/20 16:40 96 H 98 04/08/20 16:35 96 H 97 04/08/20 16:33 94 H 113/56 L 04/08/20 16:30 92 H 20 97 04/08/20 16:25 92 H 97 04/08/20 16:20 92 H 97 04/08/20 16:18 93 H 115/55 L 04/08/20 16:15 91 H 97 04/08/20 16:10 97 H 97 04/08/20 16:05 121 H 97 04/08/20 16:03 94 H 112/55 L 04/08/20 16:00 37.2 C 104 H 20 98 04/08/20 15:55 84 96 04/08/20 15:50 84 96 04/08/20 15:46 90 110/58 L 04/08/20 15:45 88 95 04/08/20 15:40 89 96 04/08/20 15:35 90 96 04/08/20 15:31 90 109/55 L
--- NOTE | 2020-04-09 04:23 | Communication Note ---
Date of Service: April 09, 2020 At 0420, pt epidural was bolused w/ 12 ml 0.17% bupivacaine + 100 mcgs fentanyl; neg asp. and incremental injection; vital signs stable; pt c/o pain 8/10
[2020-04-09] MEDS: LACTATED RINGER'S 1,000 ML IV PRN (04:48)
[2020-04-09] MEDS: CLINDAMYCIN 900 MG in DEXTROSE 5% 50 ML IV SCH (06:15)
[2020-04-09] MEDS ORDERED: fentaNYL 2MCG/ML ROPIV 1.25MG/ML 100 ML BAG EPI ONE (10:01)
[2020-04-09] MEDS ORDERED: OXYCODONE/ACETAMINOPHEN 5mg/325mg TAB PO PRN (11:32)
[2020-04-09] MEDS ORDERED: OXYTOCIN 30 UNITS/500 ML BAG IV PRN (11:32)
[2020-04-09] MEDS ORDERED: DIPHTHERIA/TETANUS/PERTUSSIS 0.5 ML SYR/VIAL IM ONE (11:32)
[2020-04-09] MEDS ORDERED: ACETAMINOPHEN W/CODEINE #3 1 TAB PO PRN (11:32)
[2020-04-09] MEDS ORDERED: BENZOCAINE 20% AER SPR 82.5 GM CAN EXT PRN (11:32)
[2020-04-09] MEDS ORDERED: SUPERCREAM 0.870% 15 GM JAR EXT PRN (11:32)
[2020-04-09] MEDS ORDERED: HYDROCORTISONE ACETATE 25 MG SUPP PR PRN (11:32)
[2020-04-09] MEDS ORDERED: ACETAMINOPHEN 325 MG TAB PO PRN (11:32)
[2020-04-09] MEDS ORDERED: bisacodyL 10 MG SUPP PR PRN (11:32)
--- NOTE | 2020-04-09 11:46 | Operative Report (OR) ---
DATE OF OPERATION: 04/09/2020 DELIVERY NOTE: Mrs. Atwood is a 1, para 1. Blood type is A positive, B strep negative, who was brought in for a relatively long labor. She did receive epidural from which she got good pain relief. She had rupture of membranes. She had slight fever. She was placed on 2 antibiotics and then basically with IV Pitocin stimulation, she eventually crowned the via right occiput anterior position over an intact perineum. was suctioned through the mouth and the nose. Shoulders were delivered without difficulty. Cord was then left to pulse for over a minute, then clamped, cut by the father. Cord blood was taken. Then, with IV Pitocin running and massaged, the placenta was removed intact. Following this, there was a first-degree laceration of the perineum, which was identified and this was repaired anatomically using a heavy Vicryl suture out to beyond the hymenal ring. Deep sutures were placed in the bulbocavernosus muscle, separate deep suture in the perineal body, a running subcuticular suture of chromic placed in the perineal skin edges. Also, she had a septum at the vaginal opening and this was clamped in 2 places, ligated with chromic and then cut prior to delivery of the head, and after that, I just left the septum the way it was. I did not dissect any more of it out. Following this, hemostasis was good. Uterus contracted nicely. Estimated blood loss was 200 mL. Apgars will be deferred to the nurses. The patient tolerated the procedure well. I attest to the content of the Intraoperative Record and any orders documented therein. Any exception s are noted below.
--- NOTE | 2020-04-09 12:28 | Anesthesia Procedure Note ---
Date of Service April 09, 2020 Anesthesia Post Epidural Note Vital Signs Vital Signs: Temp Pulse Resp BP Pulse Ox 37.5 C 102 H 20 109/58 L 95 04/09/20 07:20 04/09/20 12:20 04/09/20 07:20 04/09/20 12:20 04/09/20 11:35 Pain Intensity Bilateral Abdomen: Pain Intensity: 0 Notes Mental Status: alert / awake / arousable and participated in evaluation Patient Amnestic to Procedure: Yes Nausea / Vomiting: adequately controlled Pain: adequately controlled Airway Patency, RR, SpO2: stable & adequate BP & HR: stable & adequate Hydration State: stable & adequate Anesthetic Complications: no major complications apparent and Pt Satisfied with anesthetic care
[2020-04-09] MEDS: IBUPROFEN 600 MG TAB PO PRN ×2 (14:23→23:29)
[2020-04-09] MEDS: DOCUSATE SODIUM 100 MG CAP PO SCH (20:51)
[2020-04-10] MEDS: IBUPROFEN 600 MG TAB PO PRN ×3 (04:35→20:04)
[2020-04-10 06:54] LABS: Hematocrit (blood only) 34.6 % (37-47); Hemoglobin 11.8 g/dL (12.0-16.0); Mean Corpuscular Hemoglobin 30.2 pg (25-34); Mean Corpuscular Hgb Conc 34.1 g/dL (32-36); Mean Corpuscular Volume 88.5 fL (80-100); Mean Platelet Volume 11.9 fL (7.4-10.4); Platelet Count 185 K/uL (130-400); RDW Standard Deviation 45.2 fL (36.4-46.3); Red Blood Count 3.91 M/uL (4.2-5.4); White Blood Count 16.93 K/uL (4.8-10.8)
[2020-04-10] MEDS: DOCUSATE SODIUM 100 MG CAP PO SCH ×2 (08:41→20:04)
[2020-04-10] MEDS: PRENATAL VITAMIN 1 TAB PO SCH (08:41)
--- NOTE | 2020-04-10 11:36 | Obstetrical Progress Note ---
Date of Service April 10, 2020 Assessment & Plan Admission and Anticipated Discharge Date Admission Date: April 07, 2020 Physical Exam Physical Exam: abdomen soft and non tender ambulating well no calf tenderness vaginal bleeding scant hgb 11.8 Results & Data ([facility]) Vital Signs (Past 12 Hours) Vital Signs Temp Pulse Resp BP Pulse Ox 04/10/20 07:15 36.4 C L 73 16 103/68 04/10/20 04:45 36.5 C 75 16 123/76 97
[2020-04-10] MEDS ORDERED: bisacodyL 5 MG TABEC PO SCH (20:00)
[2020-04-11 07:24] LABS: Hematocrit (blood only) 35.1 % (37-47); Hemoglobin 12.1 g/dL (12.0-16.0)
[2020-04-11] MEDS: DOCUSATE SODIUM 100 MG CAP PO SCH (07:32)
[2020-04-11] MEDS: IBUPROFEN 600 MG TAB PO PRN (07:32)
[2020-04-11] MEDS: PRENATAL VITAMIN 1 TAB PO SCH (07:32)
--- NOTE | 2020-04-11 10:13 | Obstetrical Progress Note ---
Date of Service April 11, 2020 Assessment & Plan (1) Normal course: PPD #2 pt doing well No complaints disch home with instructiond Subjective Ambulation: ambulating normally Voiding: no voiding problems Passing Gas:: Yes Diet Tolerance:: regular diet Lochia:: Small Feeding Type:: breast feeding Review of Systems All systems reviewed & are unremarkable except as noted in HPI & below Physical Exam Constitutional WD/WN, vitals as above well developed and well nourished Eyes PERRL, conjunctivae normal, anicteric sclerae Neck trachea midline, no thyromegaly Respiratory normal respiratory effort, lungs clear to auscultation Auscultation: no crackles, no rales and no wheezes Cardiovascular RRR, no murmur, no edema Gastrointestinal (Abdomen) normal bowel sounds, soft, nontender, no hepatosplenomegaly Uterus is below umbilicus Musculoskeletal no cyanosis or clubbing, extremities motor strength 5/5 Skin no rashes, warm and dry Neurologic patellar DTR's 2+ bilat, sensation intact Psychiatric A+Ox3, euthymic affect Genitourinary normal external appearance Results & Data Vital Signs (Past 12 Hours) Vital Signs Temp Pulse Resp BP 04/11/20 07:35 36.5 C 80 18 104/73 04/11/20 00:35 36.7 C 82 18 119/76
== END 2020-04-11 13:15 | disposition home or self-care (01) | DRG 807 ==
LOC: OPB 21:17 → 4S1 21:18 → EDSTATUS 04-08 21:16 → 4S2 04-09 14:39